=== PATIENT | male | born 1975 | race Caucasian/White ===

== ENCOUNTER 2018-02-15 06:25 | Day surgery (SDC) | payer OTHER ==
[2018-02-14 09:07] VITALS: BMI 38.9
--- NOTE | 2018-02-14 19:41 | HP ---
History & Physical Update - History History: Change (see notes) (42M with unilateral nasal polyposis s/p sinus surgery many years ago with recurrent L>>R nasal congestion and obstructive nasal polyps on left. Did not respond to medical management. PMHx: LISSETTE ( borderline mild, AHI 5.3) Meds:none Allergies: NKDA) - Physical Physical: No Change (Left nasal polyposis, ITH, DNS Card: RRR, no m/r/g apprec Pulm: CTAB) - Assessment Assessment: No Change (Nasal polyposis, Sinusitis, Corby Bullosa, Deviated nasal septum) - Plan Plan: No Change (Sinus surgery to include removal of nasal polyposis, maxillary antrostomy (left), anterior ethmoidectomy (left), corby bullosa takedown (right), turbinate reduction, and possible septoplasty.)
[~2018-02-15 06:25] MED LIST: LIDOCAINE 1%/EPI 1:100000 (20 ML MULTI DOSE VIAL) IJ ONE
[2018-02-15] MEDS ORDERED: COCAINE HCL 4% TOPICAL SOLUTION 4 ML BOTTLE TP ONE (07:22)
[2018-02-15] MEDS ORDERED: MIDAZOLAM HCL 2 MG/2 ML SINGLE DOSE VIAL ONE (08:02)
[2018-02-15] MEDS ORDERED: PROPOFOL 20 ML ONE ×2 (08:10)
[2018-02-15] MEDS ORDERED: ceFAZolin SODIUM 1 GM VIAL IVPB ONE (08:10)
[2018-02-15] MEDS ORDERED: ROCURONIUM BROMIDE 50 MG/5 ML VIAL ONE ×2 (08:10→08:54)
[2018-02-15] MEDS ORDERED: LIDOCAINE 1%/EPI 1:100000 (50 ML MULTI DOSE VIAL) INF ONE ×3 (08:32)
[2018-02-15] MEDS ORDERED: LIDOCAINE 1%/EPI 1:100000 (20 ML MULTI DOSE VIAL) ONE (08:48)
[2018-02-15] MEDS ORDERED: BACITRACIN 15 GM TUBE TOPICAL OINTMENT ONE (09:23)
[2018-02-15] MEDS ORDERED: NEOSTIGMINE METHYLSULFATE 0.5 MG/ML - 10 ML MDV ONE (09:47)
--- NOTE | 2018-02-15 10:31 | OP ---
Operative Note - Note: Operative Date: 02/15/18 Pre-Operative Diagnosis: Chronic rhinosinusitis with nasal polyposis Operation: 1. Removal of nasal polyps. 2. Maxillary antrostomy with tissue removal (left). 3. Anterior Ethmoidectomy (left). 4. Takedown of corby bullosa (right). 5. Submucous resection of bilateral inferior turbinates. 6. Image guidance Findings: left nasal polyposis off MT and in infundibulum Post-Operative Diagnosis: Same as Pre-op Surgeon: Kranthi Martin Anesthesiologist/[employer] EXAMINER: Nia Calderon MD Anesthesia: General Estimated Blood Loss (mls): 50 Fluid Volume Replaced (mls): 1,500 Operative Report Dictated: Yes
[2018-02-15] MEDS ORDERED: ONDANSETRON 4 MG/2 ML VIAL IVPUSH PRN (10:40)
[2018-02-15] MEDS ORDERED: PROMETHAZINE HCL 25 MG/1 ML VIAL IVPUSH PRN (10:40)
[2018-02-15] MEDS ORDERED: oxyCODONE HCL 5 MG TABLET PO PRN (10:40)
[2018-02-15] MEDS ORDERED: LACTATED RINGERS SOLUTION 1,000 ML IV SCH (10:45)
--- NOTE | 2018-02-15 11:29 | OP ---
DATE OF OPERATION: 02/15/2018 ATTENDING SURGEON: Kranthi Lozano MD PRINTED [employer]ARDS PINNER SURGEON: None. ANESTHESIOLOGIST: Nia Calderon MD ANESTHESIA: General endotracheal anesthesia. PREOPERATIVE DIAGNOSES: 1. Left nasal polyposis. 2. Left chronic maxillary and ethmoid sinusitis, left. 3. Corby bullosa, right. 4. Bilateral inferior turbinate hypertrophy. POSTOPERATIVE DIAGNOSES: 1. Left nasal polyposis. 2. Left chronic maxillary and ethmoid sinusitis, left. 3. Corby bullosa, right. 4. Bilateral inferior turbinate hypertrophy. PROCEDURES PERFORMED: 1. Removal of nasal polyposis. 2. Left maxillary antrostomy with tissue removal. 3. Left anterior ethmoidectomy. 4. Right corby bullosa takedown. 5. Submucosa resection bilateral inferior turbinates. 6. Image guidance with I & Combine Fusion system. INDICATIONS: The patient is a 42-year-old man who complained of left greater than right nasal congestion for years. He has had previous sinus surgery for a nasal polyposis, but the polyps returned. Medical management was attempted and has been unsuccessful. The patient expressed desire for surgery. We extensively reviewed the risks, benefits, limitations, and alternatives to the aforementioned surgical procedures. All of his questions were answered, and he demonstrated his understanding. Appropriate consent was obtained. He understands there is no guaranteed outcome of surgery and that further medical and/or surgical treatment may be necessary. FINDINGS: 1. Left nasal polyposis largely extending from the middle turbinate in the middle meatus and infundibulum and into the maxillary antrum on the left. 2. Right corby bullosa. 3. Bilateral inferior turbinate hypertrophy. PROCEDURE IN DETAIL: The patient was taken from the preoperative area to the OR and placed on the table in supine position. General anesthesia was induced. The patient was intubated. A time-out was called and received a perioperative dose of steroid and antibiotic. The table was rotated to 90 degrees, and he was prepped and draped in a standard fashion. The [employer] Fusion system was brought in with the patient's 3D images available and calibrated for the system. First, injections were performed bilaterally at the root of the middle turbinates and into the heads of the middle turbinates using lidocaine 1% with 1:100,000 epinephrine under 0-degree rigid endoscope guidance. The nasal polyposis was obstructing visualization on the left side, so this was targeted first using the straight microdebrider instrument. The polyps were removed exposing the middle turbinate better and the middle meatus. The middle turbinate was gently medialized to expose the middle meatus. A 30-degree instrument was then used to visualize as the backbiter was then utilized to take down the uncinate process. Image guidance was used periodically during the case to verify positioning given that he has a revision case. The uncinate was taken down with a combination of biting instruments as well as the microdebrider. The os of the maxillary sinus was visualized and opened and enlarged posteriorly using the RAD 40 microdebrider given nice visualization into the maxillary sinus. Polypoid tissue was removed in this area, and the maxillary sinus was, otherwise, clear. The small anterior ethmoid was then removed with a curette and microdebrider. The nose was packed with topical pledgets, and attention was turned to the other side. A sickle knife was used to enter into the air cell of the right corby bullosa and then taken down along the length of the turbinate. Curved scissors were then used to remove the lateral segment of the corby bullosa along with the microdebrider taking care to avoid damage to adjacent tissue. There was some oozing from the mucosa along the floor of the remnant middle turbinate, which was cauterized with the handheld suction Bovie. The submucosal resection turbinate bladder was introduced along the right inferior turbinate and passed from anteriorly posteriorly along the plane of the bone. The face of the suction was then turned medially, and the turbinate was resected in standard fashion in a submucosal fashion. There was 1 area of bleeding from along the inferior turbinate in the middle of the nasal cavity that was cauterized with the handheld suction. A similar procedure was performed on the contralateral side with dissection along the bone with the turbinate blade followed by submucosal resection. Both nasal cavities were inspected for bleeding, and there was no significant bleeding noted apart from normal postoperative ooze. Nasopore packing was inserted on each side. Care of the patient was then returned to the anesthesiologist for awakening and extubation. All counts were correct. KRANTHI LOZANO M.D. [id number]
[2018-02-15] MEDS ORDERED: oxyCODONE HCL 5 MG TABLET PO ONE (11:40)
[2018-02-15 16:50] VITALS: BP 130/70; PULSE 78; TEMP 97.8
--- NOTE | 2018-02-16 15:00 | PATH ---
Surgical Pathology Report Patient Name: ALFREDO BARROS Med. Rec. #: [id number] /Age/Gender: 1975 (Age: 42) / M Account: [id number] Location: [facility] SURGICAL Taken: 02/15/2018 Received: 02/15/2018 Reported: 02/16/2018 Physicians: Kranthi Martin M.D. Specimen(s) Received A: LEFT NASAL POLYP B: SINUS CONTENTS Clinical History Deviated nasal septum, sinusitis, nasal polyp Final Diagnosis A. NASAL POLYP, LEFT, EXCISION: NASAL (INFLAMMATORY) POLYP. B. SINUS CONTENTS, SEPTOPLASTY, BILATERAL TURBINATE REDUCTION, LEFT MAXILLARY ANTROSTOMY WITH TISSUE REMOVAL, RIGHT EXCISION OF SERGIO BULLOSA, LEFT ANTERIOR ETHMOIDECTOMY: FRAGMENTS OF RESPIRATORY MUCOSA WITH CHRONIC SINUSITIS AND BONE. Electronically Signed Maxine Aguilar M.D. Gross Description A. Received in formalin labeled "left nasal polyp," is a 2.3 x 1.7 x 0.3 cm clay, polypoid portion of soft tissue. The specimen is submitted in toto in one cassette. B. Received in formalin labeled "sinus contents," is a 4.0 x 2.0 x 0.3 cm aggregate of clay red soft tissue fragments. The formalin is filtered and the specimen is entirely submitted in one cassette, following decalcification. 02/15/201802/15/2018
== END 2018-02-15 14:30 | disposition home or self-care (01) ==
LOC: JASU-SURG 06:25
PROVIDERS: ATTEND Otolaryngology Facial Plastic Surgery
PROC: 8E09XBZ Computer Assisted Procedure of Head and Neck Region (ICD-10-PCS; 2018-02-15)
PROC: 09BV8ZZ Excision of Left Ethmoid Sinus, Via Natural or Artificial Opening Endoscopic (ICD-10-PCS; 2018-02-15)
PROC: 09TL8ZZ Resection of Nasal Turbinate, Via Natural or Artificial Opening Endoscopic (ICD-10-PCS; 2018-02-15)
PROC: 09BL8ZZ Excision of Nasal Turbinate, Via Natural or Artificial Opening Endoscopic (ICD-10-PCS; 2018-02-15)
PROC: 099R8ZZ Drainage of Left Maxillary Sinus, Via Natural or Artificial Opening Endoscopic (ICD-10-PCS; principal; 2018-02-15 08:00)
DX: J33.8 Other polyp of sinus (principal); J32.2 Chronic ethmoidal sinusitis; J32.0 Chronic maxillary sinusitis; J34.3 Hypertrophy of nasal turbinates
CPT/HCPCS: 88304-TC; 88305-TC; 88311-TC; 94760